=== PATIENT | female | born 1990 | race Caucasian/White ===

== ENCOUNTER → 2020-08-29 | Outpatient (REF) | payer SELFPAY | LOC: M SFHCPLAZ 09:45 | PROVIDERS: ATTEND Nurse Practitioner Family | DX: Z13.228 Encounter for screening for other metabolic disorders (principal); Z13.220 Encounter for screening for lipoid disorders ==

== ENCOUNTER → 2023-02-13 | Outpatient (REF) | payer OTHER | LOC: M SFHCWAGY 12:44 | PROVIDERS: ATTEND Advanced Practice Midwife | DX: Z12.4 Encounter for screening for malignant neoplasm of cervix (principal) | CPT/HCPCS: 87624; G0123; G0463 ==

== ENCOUNTER → 2023-04-03 | Outpatient (CLI) | payer OTHER ==
[2023-04-03 11:07] LABS: BASO # 0.1 10^3/uL (0.0-0.2); BASO % 0.7 % (0.0-1.0); EOS # 0.3 10^3/uL (0.0-0.5); EOS % 3.5 % (0.0-3.0); HEMATOCRIT 39.7 % (36.0-47.0); HEMOGLOBIN 13.4 g/dl (12.0-15.5); LYMPH % 41.1 % (24.0-44.0); MEAN CORPUSCULAR HEMOGLOBIN 31.8 pg (27.0-33.0); MEAN CORPUSCULAR HGB CONC 33.8 g/dl (32.0-36.5); MEAN CORPUSCULAR VOLUME 94.3 fl (80.0-96.0); MONO # 0.7 10^3/uL (0.0-0.8); NEUTROPHILS # 3.3 10^3/uL (1.5-8.5); NEUTROPHILS % 44.4 % (36.0-66.0); PLATELET COUNT, AUTOMATED 280 10^3/uL (150-450); RED BLOOD COUNT 4.21 10^6/uL (4.00-5.40); WHITE BLOOD COUNT 7.4 10^3/uL (4.0-10.0)
[2023-04-03 11:52] LABS: ALKALINE PHOSPHATASE 89 U/L (46-116); ALT/SGPT 13 U/L (7.0-40); AST/SGOT 10 U/L (<34); BILIRUBIN,TOTAL 0.6 MG/DL (0.3-1.2); BLOOD UREA NITROGEN 15 MG/DL (9-23); CARBON DIOXIDE LEVEL 29 MMOL/L (20-31); CHLORIDE LEVEL 103 MMOL/L (98-107); CHOLESTEROL LEVEL 172 MG/DL (<200); CHOLESTEROL RISK RATIO 3.23 (<5); CREATININE FOR GFR 0.61 MG/DL (0.55-1.30); GLOMERULAR FILTRATION RATE > 60.0 (>60); GLUCOSE, FASTING 81 MG/DL (60-100); HDL CHOLESTEROL 53.2 MG/DL (>40); LDL CHOLESTEROL 104.6 MG/DL (<100); NON-HDL-C 118.8 MG/DL; POTASSIUM SERUM 3.7 MMOL/L (3.5-5.1); SODIUM LEVEL 139 MMOL/L (136-145); TOTAL PROTEIN 6.5 G/DL (5.7-8.2); TRIGLYCERIDES LEVEL 71 MG/DL (<150)
== END ==
LOC: M PLALAB 07:09
PROVIDERS: ATTEND Nurse Practitioner Family
DX: Z00.00 Encounter for general adult medical examination without abnormal findings (principal); Z13.220 Encounter for screening for lipoid disorders

== ENCOUNTER → 2023-06-26 | Outpatient (REF) | payer OTHER | LOC: M PLALAB 14:02 | PROVIDERS: ATTEND Advanced Practice Midwife | DX: Z53.9 Procedure and treatment not carried out, unspecified reason (principal) ==

== ENCOUNTER → 2023-06-29 | Outpatient (CLI) | payer OTHER | LOC: M PLALAB 12:23 | PROVIDERS: ATTEND Advanced Practice Midwife | DX: O02.1 Missed abortion (principal) | CPT/HCPCS: 36415; 84702; G0463 ==

== ENCOUNTER → 2024-04-08 | Outpatient (CLI) | payer OTHER ==
[2024-04-08 18:33] LABS: HEMATOCRIT 35.6 % (36.0-47.0); HEMOGLOBIN 12.2 g/dl (12.0-15.5); MEAN CORPUSCULAR HEMOGLOBIN 31.9 pg (27.0-33.0); MEAN CORPUSCULAR HGB CONC 34.3 g/dl (32.0-36.5); MEAN CORPUSCULAR VOLUME 93.2 fl (80.0-96.0); PLATELET COUNT, AUTOMATED 308 10^3/uL (150-450); RED BLOOD COUNT 3.82 10^6/uL (4.00-5.40); WHITE BLOOD COUNT 12.6 10^3/uL (4.0-10.0)
[2024-04-08 19:23] LABS: HIV 1&2 SCREEN NEGATIVE (NEGATIVE)
[2024-04-08 19:30] LABS: HEPATITIS C VIRUS ABY INDEX 0.09 INDEX (<0.8)
[2024-04-08 20:40] LABS: GC DNA AMPLIFICATION NEGATIVE (NEGATIVE)
== END ==
LOC: M PLALAB 15:50
PROVIDERS: ATTEND Advanced Practice Midwife
DX: O99.341 Other mental disorders complicating pregnancy, first trimester (principal); Z3A.00 Weeks of gestation of pregnancy not specified

== ENCOUNTER → 2024-06-03 | Outpatient (CLI) | payer OTHER | LOC: M WHC 12:54 | PROVIDERS: ATTEND Specialist | DX: Z34.02 Encounter for supervision of normal first pregnancy, second trimester (principal) ==

== ENCOUNTER → 2024-07-08 | Outpatient (CLI) | payer OTHER ==
[2024-07-08 13:35] LABS: GLUCOSE CHALLENGE TEST 1 HOUR 121 MG/DL (LESS THAN 140)
[2024-07-08 13:37] LABS: HEMATOCRIT 33.8 % (36.0-47.0); HEMOGLOBIN 11.3 g/dl (12.0-15.5); MEAN CORPUSCULAR HEMOGLOBIN 32.1 pg (27.0-33.0); MEAN CORPUSCULAR HGB CONC 33.4 g/dl (32.0-36.5); PLATELET COUNT, AUTOMATED 260 10^3/uL (150-450); RED BLOOD COUNT 3.52 10^6/uL (4.00-5.40)
[2024-07-08 14:03] LABS: HIV 1&2 SCREEN NEGATIVE (NEGATIVE)
[2024-07-08 14:11] LABS: HEPATITIS C VIRUS ABY INDEX 0.02 INDEX (<0.8)
[2024-07-08 15:31] LABS: GC DNA AMPLIFICATION NEGATIVE (NEGATIVE)
== END ==
LOC: M PLALAB 09:00
PROVIDERS: ATTEND Obstetrics & Gynecology
DX: Z34.02 Encounter for supervision of normal first pregnancy, second trimester (principal)

== ENCOUNTER → 2024-09-23 | Outpatient (REF) | payer OTHER | LOC: M SFHCWAGY 15:33 | PROVIDERS: ATTEND Obstetrics & Gynecology | DX: Z34.80 Encounter for supervision of other normal pregnancy, unspecified trimester (principal) ==

== ENCOUNTER 2024-10-14 09:34 | Inpatient (IN) | payer OTHER ==
[2024-10-14] VITALS (44 sets, daily range): BP systolic 104–147; BP diastolic 55–94; O2SAT 90–100
[~2024-10-14] VITALS: Ht 157.5 cm; Wt 65.6 kg
[2024-10-14] MEDS ORDERED: MIRA3350 PO (09:58)
[2024-10-14] MEDS ORDERED: PRENTAB9 PO (09:58)
[2024-10-14] MEDS ORDERED: ACET-897 PO (09:58)
[2024-10-14] MEDS ORDERED: TUMS500C PO (09:58)
[2024-10-14] MEDS ORDERED: CYMB60CA4 PO (09:58)
[2024-10-14] MEDS ORDERED: HOME MED LIST COMPLETE! XX SCH (10:00)
[2024-10-14] MEDS: LACTATED RINGER'S 1000 ML IV STA (11:26)
[2024-10-14] MEDS ORDERED: LIDOCAINE 1% MDV 20ML VIAL INFIL PRN (11:30)
[2024-10-14] MEDS ORDERED: METHYLERGONOVINE MALEATE 0.2MG/ML 1ML VIAL IM PRN (11:30)
[2024-10-14] MEDS ORDERED: OXYTOCIN DRIP 30 UNITS in IV 1 EA IV PRN (11:30)
[2024-10-14] MEDS ORDERED: CARBOPROST TROMETHAMINE 250 MCG/ML AMP IM PRN (11:30)
[2024-10-14] MEDS ORDERED: TRANEXAMIC ACID INJection 1,000 MG in NS 100 ML IV PRN (11:30)
[2024-10-14 12:08] LABS: HEMATOCRIT 40.2 % (36.0-47.0); HEMOGLOBIN 13.6 g/dl (12.0-15.5); MEAN CORPUSCULAR HEMOGLOBIN 30.7 pg (27.0-33.0); MEAN CORPUSCULAR HGB CONC 33.8 g/dl (32.0-36.5); MEAN CORPUSCULAR VOLUME 90.7 fl (80.0-96.0); PLATELET COUNT, AUTOMATED 244 10^3/uL (150-450); RED BLOOD COUNT 4.43 10^6/uL (4.00-5.40)
[2024-10-14] MEDS: LR 1,000 ML IV SCH (12:45)
[2024-10-14] MEDS: OXYTOCIN DRIP 30 UNITS in IV 1 EA IV SCH ×2 (12:56→22:05)
[2024-10-14 14:22] LABS: HIV 1&2 SCREEN NEGATIVE (NEGATIVE)
[2024-10-14 14:30] LABS: HEPATITIS C VIRUS ABY INDEX 0.02 INDEX (<0.8)
[2024-10-14] MEDS ORDERED: FENTANYL 2MCG/ML ROPIVACAINE 0.2% IN 0.9% NACL 100ML IVBAG As Ordered ONE (15:37)
[2024-10-14 15:58] LABS: HEPATITIS B SURFACE ANTIGEN NEGATIVE (NEGATIVE)
[2024-10-14] MEDS ORDERED: NALOXONE INJ 0.4MG/1ML VIAL IV PRN (16:20)
[2024-10-14] MEDS ORDERED: EPIDURAL/PCA KEYS XX PRN (16:20)
[2024-10-14] MEDS ORDERED: diphenhydrAMINE 50MG/ML VIAL IV PRN (16:20)
[2024-10-14] MEDS ORDERED: LR 500 ML IV PRN (16:20)
[2024-10-14] MEDS ORDERED: ePHEDrine SULFATE 25 MG/5 ML(5MG/ML) SYRINGE IVP PRN (16:20)
[2024-10-14] MEDS: FENTANYL/ROPIVACAINE/NACL BAG 100 ML EPIDURAL SCH (16:43)
[2024-10-14] MEDS: DULoxetine 30MG CAPSULE (CYMBALTA) PO SCH (18:53)
[2024-10-14] MEDS: ONDANSETRON 4MG 2ML VIAL IV PRN (20:01)
[2024-10-14] MEDS ORDERED: ONDANSETRON 4MG 2ML VIAL IV PRN (22:05)
[2024-10-14] MEDS ORDERED: ACETAMINOPHEN 325 MG TAB PO PRN (22:05)
[2024-10-14] MEDS ORDERED: RHOGAM 300MCG (1500IU) INJ IM SCH (22:05)
[2024-10-14] MEDS ORDERED: CALCIUM CARBONATE 500 MG CHEW U/D PO PRN (22:05)
[2024-10-14] MEDS ORDERED: LR 1,000 ML IV SCH (22:05)
[2024-10-14] MEDS ORDERED: ACETAMINOPHEN 500 MG TAB PO PRN (22:05)
[2024-10-15] MEDS: DIBUCAINE 1% OINTMENT 30GM TOP PRN
[2024-10-15] MEDS: ANUSOL HC CREAM 30GM TOP PRN
[2024-10-15 06:00] VITALS: BP 113/68; O2SAT 98
[2024-10-15] MEDS: IBUPROFEN 600MG TAB PO PRN (06:03)
[2024-10-15] MEDS ORDERED: DULoxetine 30MG CAPSULE (CYMBALTA) PO SCH (09:00)
[2024-10-15 10:00] VITALS: BP 113/68; TEMP 98.9; O2SAT 98
[2024-10-15] MEDS: DOCUSATE SODIUM 100MG CAPSULE PO PRN (10:04)
[2024-10-15] MEDS: PRENATAL VITAMINS CHEWABLE TABLET PO SCH (10:04)
[2024-10-15 18:00] VITALS: BP 112/69; O2SAT 98
[2024-10-15] MEDS: IBUPROFEN 800 MG TAB PO PRN (18:10)
[2024-10-16 06:00] VITALS: BP 124/57; O2SAT 100
[2024-10-16] MEDS: MEASLES,MUMPS,RUBELLA VACCINE INJ (MMR-II) SC.IMMUN ONE (07:27)
[2024-10-16 17:43] VITALS: BP 118/75; O2SAT 98
[2024-10-17 06:00] VITALS: BP 118/64; O2SAT 98
[2024-10-17] MEDS ORDERED: ACET-683 PO (13:16)
[2024-10-17] MEDS ORDERED: IBUP80TA PO (13:16)
== END 2024-10-17 15:05 | disposition home or self-care (01) | DRG 807 ==
LOC: M LDO 09:34 → M LDI 11:26 → M OBS 23:34
PROVIDERS: ADMIT Obstetrics & Gynecology; ATTEND Obstetrics & Gynecology
PROC: 0KQM0ZZ Repair Perineum Muscle, Open Approach (ICD-10-PCS; principal; 2024-10-14)
PROC: 10E0XZZ Delivery of Products of Conception, External Approach (ICD-10-PCS; 2024-10-14)
DX: O70.1 Second degree perineal laceration during delivery (principal); Z37.0 Single live birth; Z3A.38 38 weeks gestation of pregnancy

== ENCOUNTER → 2025-07-07 | Outpatient (REF) | payer OTHER ==
[~2025-07-07] MED LIST: ACET-683 PO; ACET-897 PO; CYMB60CA4 PO; IBUP80TA PO; MIRA3350 PO; PRENTAB9 PO; TUMS500C PO
== END ==
LOC: M SFHCPLAZ 17:23
PROVIDERS: ATTEND Nurse Practitioner Family
DX: D22.39 Melanocytic nevi of other parts of face (principal)